=== PATIENT | female | born 1955 | race Caucasian/White ===

== ENCOUNTER 2020-10-02 00:06 | Inpatient (IN) | payer MEDICARE, OTHER ==
[~2020-10-02] VITALS: Ht 167.6 cm; Wt 102.1 kg
[2020-10-02] VITALS (15 sets, daily range): BP systolic 93–141; BP diastolic 41–105
[2020-10-02] MEDS ORDERED: BACLOFEN10 MG PO (05:23)
[2020-10-02] MEDS ORDERED: FLAGYL500 MG PO (05:23)
[2020-10-02] MEDS ORDERED: CYMBALTA30 MG PO (05:23)
[2020-10-02] MEDS ORDERED: PROPRANOLOL HCL40 MG PO (05:23)
[2020-10-02] MEDS ORDERED: DITROPAN XL5 MG PO (05:23)
[2020-10-02] MEDS ORDERED: LEVOFLOXACIN250 MG PO (05:23)
[2020-10-02] MEDS ORDERED: DOCUSATE SODIU100 M1 PO (05:23)
[2020-10-02] MEDS ORDERED: PHENERGAN25 MG/1 ML IM (05:23)
[2020-10-02] MEDS ORDERED: POTASSIUM CHLO10 ME1 PO (05:23)
[2020-10-02] MEDS ORDERED: CALCIUM 500 +1 EAC3 PO (05:23)
[2020-10-02] MEDS ORDERED: TRAZODONE HCL150 MG PO (05:23)
[2020-10-02] MEDS ORDERED: SENNA LAX8.6 MG PO (05:23)
[2020-10-02] MEDS ORDERED: OMEPRAZOLE40 MG PO (05:23)
[2020-10-02] MEDS ORDERED: TRICOR145 MG PO (05:23)
[2020-10-02] MEDS ORDERED: ROPINIROLE HCL0.5 MG PO (05:23)
[2020-10-02] MEDS ORDERED: LASIX20 MG PO (05:23)
[2020-10-02] MEDS ORDERED: LORATADINE10 MG PO (05:23)
[2020-10-02 06:01] LABS: BASOPHILS % 0.2 % (0.0-1.0); EOSINOPHILS % 0.1 % (0.0-6.0); HEMATOCRIT 33.6 % (34.2-44.1); LYMPHOCYTES # (AUTO) 2.2 (1.0-3.2); LYMPHOCYTES % 14.7 % (18.0-39.1); MEAN CORPUSCULAR HEMOGLOBIN 30.4 pg (28-32); MEAN CORPUSCULAR HGB CONC 32.7 g/dL (31-35); MEAN CORPUSCULAR VOLUME 92.8 fL (81-99); MONOCYTES # (AUTO) 1.1 (0.2-0.8); MONOCYTES % 7.1 % (4.4-11.3); NEUTROPHILS # (AUTO) 11.6 (2.1-6.9); NEUTROPHILS % 77.4 % (38.7-80.0); PLATELET COUNT 269 x10e3/uL (140-360); RED BLOOD COUNT 3.62 x10e6/uL (3.6-5.1); RED CELL DISTRIBUTION WIDTH 14.3 % (11.7-14.4)
[2020-10-02 06:34] LABS: CALCIUM 7.6 mg/dL (8.4-10.2); CREATININE, SERUM 1.58 mg/dL (0.57-1.11)
[2020-10-02] MEDS ORDERED: DOCUSATE SODIUM PO PRN (11:15)
[2020-10-02] MEDS ORDERED: SENNOSIDES 8.6 MG TAB PO PRN (11:15)
[2020-10-02] MEDS ORDERED: DOCUSATE SODIUM 100 MG CAP PO PRN (11:30)
[2020-10-02] MEDS: OYST-CAL-D 500MG TABLET PO SCH (11:55)
[2020-10-02] MEDS ORDERED: CEFEPIME HCL 1 GM VIAL IV SCH (17:15)
[2020-10-02] MEDS ORDERED: SODIUM CHLORIDE 0.9% 250ML 250 ML ONE (17:37)
[2020-10-02] MEDS: CEFEPIME 1GM/NS 0.9% 50 ML 50 ML IV SCH (17:44)
[2020-10-02] MEDS: ROPINIROLE HCL 1 MG TAB PO SCH (21:10)
[2020-10-02] MEDS: TRAZODONE HCL 50 MG TAB PO SCH (21:10)
[2020-10-02] MEDS: FENOFIBRATE 145 MG TAB PO SCH (21:10)
[2020-10-03] VITALS (8 sets, daily range): BP systolic 94–167; BP diastolic 53–76
[2020-10-03 06:10] LABS: BASOPHILS % 0.3 % (0.0-1.0); EOSINOPHILS % 0.3 % (0.0-6.0); HEMATOCRIT 34.9 % (34.2-44.1); HEMOGLOBIN 11.5 g/dL (12.0-16.0); LYMPHOCYTES # (AUTO) 4.3 (1.0-3.2); LYMPHOCYTES % 34.8 % (18.0-39.1); MEAN CORPUSCULAR HEMOGLOBIN 29.8 pg (28-32); MEAN CORPUSCULAR VOLUME 90.4 fL (81-99); MONOCYTES # (AUTO) 1.1 (0.2-0.8); MONOCYTES % 8.7 % (4.4-11.3); NEUTROPHILS # (AUTO) 6.9 (2.1-6.9); NEUTROPHILS % 55.3 % (38.7-80.0); PLATELET COUNT 286 x10e3/uL (140-360); RED BLOOD COUNT 3.86 x10e6/uL (3.6-5.1); RED CELL DISTRIBUTION WIDTH 14.5 % (11.7-14.4)
[2020-10-03] MEDS: CEFEPIME 1GM/NS 0.9% 50 ML 50 ML IV SCH ×2 (06:20→17:14)
[2020-10-03 06:25] LABS: ANION GAP 11.4 mmol/L (8-16); BLOOD UREA NITROGEN 12 mg/dL (7-26); BUN/CREATININE RATIO 15 (6-25); CARBON DIOXIDE 24 mmol/L (22-29); CHLORIDE 108 mmol/L (98-107); CREATININE, SERUM 0.81 mg/dL (0.57-1.11); EST GLOMERULAR FILTRATION RATE > 60 ML/MIN (60-); GLUCOSE 128 mg/dL (74-118); POTASSIUM 3.4 mmol/L (3.5-5.1); SODIUM 140 mmol/L (136-145)
[2020-10-03] MEDS: LORATADINE 10 MG TAB PO SCH (08:23)
[2020-10-03] MEDS: DULOXETINE HCL 30 MG DELAYED RELEASE PO SCH (08:23)
[2020-10-03] MEDS: PANTOPRAZOLE SOD 40 MG TABEC PO SCH (08:24)
[2020-10-03] MEDS: OYST-CAL-D 500MG TABLET PO SCH ×2 (08:24→17:14)
[2020-10-03] MEDS: OXYBUTYNIN CHLORIDE XL 5 MG TAB PO SCH (08:24)
[2020-10-03] MEDS: FENOFIBRATE 145 MG TAB PO SCH (21:06)
[2020-10-03] MEDS: TRAZODONE HCL 50 MG TAB PO SCH (21:06)
[2020-10-03] MEDS: ROPINIROLE HCL 1 MG TAB PO SCH (21:06)
[2020-10-04] VITALS (8 sets, daily range): BP systolic 111–154; BP diastolic 60–98
[2020-10-04] MEDS: CEFEPIME 1GM/NS 0.9% 50 ML 50 ML IV SCH ×2 (05:02→17:05)
[2020-10-04] MEDS: OYST-CAL-D 500MG TABLET PO SCH ×2 (08:03→16:44)
[2020-10-04] MEDS: OXYBUTYNIN CHLORIDE XL 5 MG TAB PO SCH (08:03)
[2020-10-04] MEDS: LORATADINE 10 MG TAB PO SCH (08:03)
[2020-10-04] MEDS: DULOXETINE HCL 30 MG DELAYED RELEASE PO SCH (08:03)
[2020-10-04] MEDS: PANTOPRAZOLE SOD 40 MG TABEC PO SCH (08:04)
[2020-10-04] MEDS: LOPERAMIDE HCL 2 MG CAP PO PRN ×2 (14:06→18:24)
[2020-10-04] MEDS ORDERED: POTASSIUM CHLORIDE 20 MEQ TAB CR PO NR (14:15)
[2020-10-04 15:21] LABS: BASOPHILS # (AUTO) 0.1 (0.0-0.1); BASOPHILS % 0.4 % (0.0-1.0); EOSINOPHILS # (AUTO) 0.1 (0.0-0.4); EOSINOPHILS % 0.4 % (0.0-6.0); HEMATOCRIT 34.6 % (34.2-44.1); HEMOGLOBIN 11.6 g/dL (12.0-16.0); LYMPHOCYTES # (AUTO) 3.4 (1.0-3.2); LYMPHOCYTES % 28.5 % (18.0-39.1); MEAN CORPUSCULAR HEMOGLOBIN 30.6 pg (28-32); MEAN CORPUSCULAR HGB CONC 33.5 g/dL (31-35); MEAN CORPUSCULAR VOLUME 91.3 fL (81-99); MONOCYTES % 8.1 % (4.4-11.3); NEUTROPHILS # (AUTO) 7.4 (2.1-6.9); NEUTROPHILS % 61.8 % (38.7-80.0); PLATELET COUNT 312 x10e3/uL (140-360); RED BLOOD COUNT 3.79 x10e6/uL (3.6-5.1); RED CELL DISTRIBUTION WIDTH 14.4 % (11.7-14.4)
[2020-10-04] MEDS: FENOFIBRATE 145 MG TAB PO SCH (20:06)
[2020-10-04] MEDS: TRAZODONE HCL 50 MG TAB PO SCH (20:06)
[2020-10-04] MEDS: ROPINIROLE HCL 1 MG TAB PO SCH (20:06)
[2020-10-05] VITALS (8 sets, daily range): BP systolic 132–158; BP diastolic 70–88
[2020-10-05] MEDS: CEFEPIME 1GM/NS 0.9% 50 ML 50 ML IV SCH ×2 (05:40→17:00)
[2020-10-05 07:02] LABS: ANION GAP 10.8 mmol/L (8-16); BLOOD UREA NITROGEN 7 mg/dL (7-26); BUN/CREATININE RATIO 11 (6-25); CALCIUM 8.7 mg/dL (8.4-10.2); CARBON DIOXIDE 23 mmol/L (22-29); CHLORIDE 111 mmol/L (98-107); CREATININE, SERUM 0.66 mg/dL (0.57-1.11); EST GLOMERULAR FILTRATION RATE > 60 ML/MIN (60-); GLUCOSE 118 mg/dL (74-118); POTASSIUM 3.8 mmol/L (3.5-5.1); SODIUM 141 mmol/L (136-145)
[2020-10-05] MEDS: DULOXETINE HCL 30 MG DELAYED RELEASE PO SCH (08:41)
[2020-10-05] MEDS: PANTOPRAZOLE SOD 40 MG TABEC PO SCH (08:41)
[2020-10-05] MEDS: LOPERAMIDE HCL 2 MG CAP PO PRN (08:41)
[2020-10-05] MEDS: LORATADINE 10 MG TAB PO SCH (08:41)
[2020-10-05] MEDS: OYST-CAL-D 500MG TABLET PO SCH ×2 (08:41→16:10)
[2020-10-05] MEDS: OXYBUTYNIN CHLORIDE XL 5 MG TAB PO SCH (08:41)
[2020-10-05] MEDS: ENOXAPARIN SOD INJ 40 MG/0.4 ML SYR SC SCH (16:10)
[2020-10-05] MEDS: FENOFIBRATE 145 MG TAB PO SCH (20:29)
[2020-10-05] MEDS: TRAZODONE HCL 50 MG TAB PO SCH (20:29)
[2020-10-05] MEDS: ROPINIROLE HCL 1 MG TAB PO SCH (20:29)
[2020-10-06] VITALS (8 sets, daily range): BP systolic 127–153; BP diastolic 68–84
[2020-10-06] MEDS: CEFEPIME 1GM/NS 0.9% 50 ML 50 ML IV SCH ×2 (05:32→18:23)
[2020-10-06 05:43] LABS: BASOPHILS % 0.3 % (0.0-1.0); EOSINOPHILS # (AUTO) 0.1 (0.0-0.4); EOSINOPHILS % 1.2 % (0.0-6.0); HEMATOCRIT 35.8 % (34.2-44.1); LYMPHOCYTES # (AUTO) 2.1 (1.0-3.2); LYMPHOCYTES % 22.2 % (18.0-39.1); MEAN CORPUSCULAR HEMOGLOBIN 30.8 pg (28-32); MEAN CORPUSCULAR HGB CONC 33.5 g/dL (31-35); MONOCYTES # (AUTO) 0.8 (0.2-0.8); MONOCYTES % 8.6 % (4.4-11.3); NEUTROPHILS # (AUTO) 6.4 (2.1-6.9); NEUTROPHILS % 66.9 % (38.7-80.0); PLATELET COUNT 298 x10e3/uL (140-360); RED BLOOD COUNT 3.89 x10e6/uL (3.6-5.1); RED CELL DISTRIBUTION WIDTH 14.3 % (11.7-14.4)
[2020-10-06] MEDS: LORATADINE 10 MG TAB PO SCH (08:49)
[2020-10-06] MEDS: OYST-CAL-D 500MG TABLET PO SCH ×2 (08:49→17:04)
[2020-10-06] MEDS: PANTOPRAZOLE SOD 40 MG TABEC PO SCH (08:49)
[2020-10-06] MEDS: DULOXETINE HCL 30 MG DELAYED RELEASE PO SCH (08:50)
[2020-10-06] MEDS: OXYBUTYNIN CHLORIDE XL 5 MG TAB PO SCH (08:50)
[2020-10-06] MEDS: ASPIRIN 81 MG ENTERIC COATED PO SCH (08:50)
[2020-10-06] MEDS ORDERED: ONDANSETRON HCL 4 MG ORAL DISINTEGRATING TAB PO ONE (11:15)
[2020-10-06] MEDS ORDERED: TRAZODONE HCL 50 MG TAB PO ONE (14:45)
[2020-10-06] MEDS: ENOXAPARIN SOD INJ 40 MG/0.4 ML SYR SC SCH (17:04)
[2020-10-06] MEDS: TRAZODONE HCL 50 MG TAB PO SCH (20:55)
[2020-10-06] MEDS: FENOFIBRATE 145 MG TAB PO SCH (20:56)
[2020-10-06] MEDS: ROPINIROLE HCL 1 MG TAB PO SCH (20:56)
[2020-10-07] VITALS: BP 130/70
[2020-10-07 04:00] VITALS: BP 143/61
[2020-10-07] MEDS: CEFEPIME 1GM/NS 0.9% 50 ML 50 ML IV SCH (06:15)
[2020-10-07 07:43] VITALS: BP 151/81
[2020-10-07 08:49] VITALS: BP 151/81
[2020-10-07] MEDS: DULOXETINE HCL 30 MG DELAYED RELEASE PO SCH (08:59)
[2020-10-07] MEDS: LORATADINE 10 MG TAB PO SCH (08:59)
[2020-10-07] MEDS: ASPIRIN 81 MG ENTERIC COATED PO SCH (08:59)
[2020-10-07] MEDS: PANTOPRAZOLE SOD 40 MG TABEC PO SCH (09:00)
[2020-10-07] MEDS: OXYBUTYNIN CHLORIDE XL 5 MG TAB PO SCH (09:00)
[2020-10-07] MEDS: OYST-CAL-D 500MG TABLET PO SCH (09:00)
== END 2020-10-07 12:05 | DRG 871 ==
LOC: ICU 04:17 → MED/SURG3 12:30
DX: A41.9 Sepsis, unspecified organism (principal); J15.9 Unspecified bacterial pneumonia; G93.41 Metabolic encephalopathy; N17.9 Acute kidney failure, unspecified; N39.0 Urinary tract infection, site not specified; I69.354 Hemiplegia and hemiparesis following cerebral infarction affecting left non-dominant side; I10 Essential (primary) hypertension; E11.9 Type 2 diabetes mellitus without complications; E66.9 Obesity, unspecified; Z68.36 Body mass index [BMI] 36.0-36.9, adult; Z20.828 Contact with and (suspected) exposure to other viral communicable diseases; F32.9 Major depressive disorder, single episode, unspecified; R19.7 Diarrhea, unspecified; Z74.09 Other reduced mobility; M24.59 Contracture, other specified joint; R65.20 Severe sepsis without septic shock
CPT/HCPCS: 36415; 71045; 71046; 80048; 82948; 83605; 83735; 85025; 87040; 87086; 87493; 93306; J0692; J1650; J7050; U0002